=== PATIENT | male | born 1990 | race Two or more races ===

== ENCOUNTER 2021-09-06 10:38 | Emergency (ER) | payer MEDICAID, OTHER ==
[~2021-09-06] VITALS: Ht 170.2 cm; Wt 99.8 kg
[2021-09-06] MEDS ORDERED: DIPHENOXYLATE W/ATROPINE 2.5 MG TAB PO ONE (11:00)
[2021-09-06] MEDS ORDERED: metroNIDAZOLE 500MG/100ML 100 ML IV ONE (11:00)
[2021-09-06 12:29] LABS: Basophils # (auto) 0 10 ^3/uL (0-0.2); Basophils % (auto) 0.2 % (0.0-2.0); Eosinophils # (auto) 0.2 10 ^3/uL (0-0.8); Eosinophils % (auto) 3.5 % (0.0-7.0); Hematocrit 50.2 % (41.0-53.0); Hemoglobin 17.4 g/dL (13.5-17.5); Lymphocytes # (auto) 1.8 10 ^3/uL (0.4-5.4); Lymphocytes % (auto) 28.4 % (10.0-50.0); Mean Corpuscular Hemoglobin 29.2 pg (28.0-32.0); Mean Corpuscular Hgb Conc. 34.7 g/dL (32.0-36.0); Mean Corpuscular Volume 84.3 fL (80.0-100.0); Monocytes % (auto) 16.3 % (0.0-12.0); Neutrophils # (auto) 3.2 10 ^3/uL (1.6-8.6); Neutrophils % (auto) 51.6 % (37.0-80.0); Nucleated Red Blood Cells % 0.6 %; Red Blood Cells 5.95 10^6/uL (4.5-5.90); White Blood Cell 6.3 10^3/uL (4.4-10.8)
[2021-09-06 12:54] LABS: Albumin 3.5 g/dL (3.4-5.0); BUN/Creatinine Ratio 10.3; Calcium 8.8 mg/dL (8.5-10.1); Potassium 3.8 mmol/L (3.5-5.1)
[2021-09-06 12:57] LABS: Bilirubin, Total 0.7 mg/dL (0.2-1.0); Total Protein 6.9 g/dL (6.4-8.2)
[2021-09-06 13:51] LABS: Urine Bacteria NONE SEEN /hpf (None Seen); Urine Blood Negative /uL (Negative); Urine Specific Gravity 1.025 (1.001-1.035); Urine WBC 1 /hpf (0 - 3)
[2021-09-06 14:06] LABS: Amphetamine Screen, Urine NEGATIVE (NEGATIVE); Barbiturate Scree,Urine NEGATIVE (NEGATIVE); Benzodiazephine Screen, Urine NEGATIVE (NEGATIVE); Cannabinoid Screen, Urine NEGATIVE (NEGATIVE); Cocaine Screen, Urine NEGATIVE (NEGATIVE); Opiate Scree,Urine NEGATIVE (NEGATIVE); Phencyclidine Screen, Urine NEGATIVE (NEGATIVE)
[2021-09-06 14:13] LABS: Alcohol, Urine < 3.0 mg/dL (0-10)
[2021-09-06] MEDS ORDERED: METR500T PO (17:14)
[2021-09-06] MEDS ORDERED: DIPH2.5T73 PO (17:23)
[2021-09-06 17:43] VITALS: BP 122/65
== END 2021-09-06 17:47 | disposition home or self-care (01) ==
LOC: ER 10:38
DX: N20.0 Calculus of kidney (principal); F12.10 Cannabis abuse, uncomplicated
CPT/HCPCS: 36415; 74176; 80053; 80307; 81001; 85025; 96365; 99284; J3490

== ENCOUNTER 2021-11-15 02:06 | Emergency (ER) | payer MEDICAID ==
[~2021-11-15] VITALS: Ht 172.7 cm; Wt 98.4 kg
[~2021-11-15 02:06] MED LIST: METR500T PO
[2021-11-15 07:31] VITALS: BP 130/53
[2021-11-15] MEDS ORDERED: KETOROLAC TROMETH 60MG/2ML VIAL IM ONE (09:15)
== END 2021-11-15 09:44 | disposition home or self-care (01) ==
LOC: ER 02:06
DX: G43.909 Migraine, unspecified, not intractable, without status migrainosus (principal); G47.00 Insomnia, unspecified; F12.10 Cannabis abuse, uncomplicated
CPT/HCPCS: 70450; 96372; 99284; J1885

== ENCOUNTER 2022-07-28 16:31 | Emergency (ER) | payer MEDICAID ==
[~2022-07-28] VITALS: Ht 172.7 cm; Wt 99.1 kg
[2022-07-28 16:37] VITALS: BP 125/75
[2022-07-28 17:08] LABS: Urine Bacteria NONE SEEN /hpf (None Seen); Urine Blood Negative /uL (Negative); Urine Specific Gravity 1.024 (1.001-1.035); Urine WBC 1 /hpf (0 - 3)
== END 2022-07-28 20:00 | disposition left against medical advice (07) ==
LOC: ER 16:31
DX: R10.9 Unspecified abdominal pain (principal); R51.9 Headache, unspecified; Z53.21 Procedure and treatment not carried out due to patient leaving prior to being seen by health care provider
CPT/HCPCS: 81001

== ENCOUNTER 2023-02-13 12:12 | Emergency (ER) | payer MEDICAID ==
[~2023-02-13] VITALS: Ht 170.2 cm; Wt 102.5 kg
[2023-02-13 15:10] VITALS: BP 135/74
[2023-02-13 16:15] LABS: Basophils # (auto) 0 10 ^3/uL (0-0.2); Basophils % (auto) 0.4 % (0.0-2.0); Eosinophils # (auto) 0.3 10 ^3/uL (0-0.8); Eosinophils % (auto) 3.2 % (0.0-7.0); Hematocrit 49.5 % (41.0-53.0); Hemoglobin 17.5 g/dL (13.5-17.5); Lymphocytes # (auto) 1.9 10 ^3/uL (0.4-5.4); Lymphocytes % (auto) 23.3 % (10.0-50.0); Mean Corpuscular Hemoglobin 30.9 pg (28.0-32.0); Mean Corpuscular Hgb Conc. 35.3 g/dL (32.0-36.0); Mean Corpuscular Volume 87.5 fL (80.0-100.0); Monocytes # (auto) 0.9 10 ^3/uL (0-1.3); Monocytes % (auto) 10.4 % (0.0-12.0); Neutrophils # (auto) 5.2 10 ^3/uL (1.6-8.6); Neutrophils % (auto) 62.7 % (37.0-80.0); Nucleated Red Blood Cells % 0.3 %; Red Blood Cells 5.66 10^6/uL (4.5-5.90); Red Cell Distribution Width 13.1 % (11.8-14.3); White Blood Cell 8.3 10^3/uL (4.4-10.8)
[2023-02-13 16:38] LABS: Urine Amorphous Crystal FEW /hpf (None Seen); Urine Bacteria NONE SEEN /hpf (None Seen); Urine Blood Negative /uL (Negative); Urine Specific Gravity 1.024 (1.001-1.035); Urine WBC 2 /hpf (0 - 3)
[2023-02-13 16:44] LABS: Alanine Aminotransferase 53 U/L (16-61); Albumin 3.6 g/dL (3.4-5.0); Anion Gap 3 (5-15); Aspartate Aminotransferase 46 U/L (15-37); BUN/Creatinine Ratio 19.1 (10.0-20.0); Blood Urea Nitrogen 21 mg/dL (7-18); Calcium 8.7 mg/dL (8.5-10.1); Carbon Dioxide 27 mmol/L (21-32); Chloride 108 mmol/L (98-107); GFR African American 99 mL/min; GFR Non-African American 82 mL/min; Glucose 98 mg/dL (74-106); Potassium 4.2 mmol/L (3.5-5.1); Sodium 138 mmol/L (136-145)
[2023-02-13 16:47] LABS: Alkaline Phosphatase 86 U/L (45-117); Bilirubin, Total 0.5 mg/dL (0.2-1.0); Creatine Kinase IFCC 520 U/L (39-308); Total Protein 7.3 g/dL (6.4-8.2)
[2023-02-13 17:06] LABS: Blood Alcohol < 3.0 mg/dL (<10)
[2023-02-13 17:35] LABS: Amphetamine Screen, Urine NEGATIVE (NEGATIVE); Barbiturate Scree,Urine NEGATIVE (NEGATIVE); Benzodiazephine Screen, Urine NEGATIVE (NEGATIVE); Cannabinoid Screen, Urine NEGATIVE (NEGATIVE); Cocaine Screen, Urine NEGATIVE (NEGATIVE); Opiate Scree,Urine NEGATIVE (NEGATIVE); Phencyclidine Screen, Urine NEGATIVE (NEGATIVE)
[2023-02-13 17:36] LABS: Alcohol, Urine < 3.0 mg/dL (0-10)
[2023-02-13] MEDS ORDERED: AZIT500T66 PO (18:07)
[2023-02-13] MEDS ORDERED: METH-1182 PO (18:07)
[2023-02-13] MEDS ORDERED: PRED20TA2 PO (18:07)
== END 2023-02-13 18:11 | disposition home or self-care (01) ==
LOC: ER 12:12
DX: J01.90 Acute sinusitis, unspecified (principal); F41.1 Generalized anxiety disorder; F32.9 Major depressive disorder, single episode, unspecified; Z79.899 Other long term (current) drug therapy
CPT/HCPCS: 36415; 80053; 80307; 80320; 81001; 82550; 84484; 85025

== ENCOUNTER 2023-04-21 17:54 | Emergency (ER) | payer MEDICAID ==
[~2023-04-21] VITALS: Ht 170.2 cm; Wt 100.6 kg
[~2023-04-21 17:54] MED LIST changes: +AZIT500T66 PO; +METH-1182 PO; +PRED20TA2 PO
[2023-04-21 19:06] VITALS: BP 123/84; PULSE 98; RESP 18; TEMP 98.7; O2SAT 96
== END 2023-04-21 20:07 | disposition left against medical advice (07) ==
LOC: ER 17:54
DX: R51.9 Headache, unspecified (principal); R50.9 Fever, unspecified; M79.10 Myalgia, unspecified site; R11.2 Nausea with vomiting, unspecified; Z53.21 Procedure and treatment not carried out due to patient leaving prior to being seen by health care provider

== ENCOUNTER 2024-06-04 11:21 | Emergency (ER) | payer MEDICAID ==
[~2024-06-04] VITALS: Ht 172.7 cm; Wt 101.7 kg
[2024-06-04 12:50] VITALS: BP 119/77; PULSE 92; RESP 17; TEMP 98.6; O2SAT 96
[2024-06-04] MEDS ORDERED: ZOLP10TA PO (13:12)
== END 2024-06-04 13:23 | disposition home or self-care (01) ==
LOC: ER 11:21
DX: G47.00 Insomnia, unspecified (principal); M54.32 Sciatica, left side; F41.9 Anxiety disorder, unspecified; F32.9 Major depressive disorder, single episode, unspecified; F15.90 Other stimulant use, unspecified, uncomplicated; Z79.899 Other long term (current) drug therapy; Z79.52 Long term (current) use of systemic steroids

== ENCOUNTER 2024-06-06 16:57 | Emergency (ER) | payer MEDICAID ==
[~2024-06-06] VITALS: Ht 170.2 cm; Wt 102.0 kg
[~2024-06-06 16:57] MED LIST changes: +ZOLP10TA PO
[2024-06-06] MEDS ORDERED: QUET300T14 PO (18:02)
[2024-06-06 18:52] VITALS: BP 137/79; PULSE 70; RESP 20; TEMP 97.9; O2SAT 99
== END 2024-06-06 18:54 | disposition home or self-care (01) ==
LOC: ER 16:57
DX: G47.00 Insomnia, unspecified (principal); G89.29 Other chronic pain; M54.9 Dorsalgia, unspecified; F41.9 Anxiety disorder, unspecified; F31.9 Bipolar disorder, unspecified; F17.290 Nicotine dependence, other tobacco product, uncomplicated